=== PATIENT | male | born 2000 | race Caucasian/White ===

== ENCOUNTER 2018-06-12 05:12 | Day surgery (SDC) | payer OTHER, BC ==
--- NOTE | 2018-06-12 09:33 | HP ---
Satellite H - Chief Complaint Chief Complaint: right hand fx - Past Medical History Allergies/Adverse Reactions: Allergies Allergy/AdvReac Type Severity Reaction Status Date / Time No Known Allergies Allergy Verified 06/10/18 13:39 - Current Medications Current Medications: Home Medications Medication Instructions Recorded Cetirizine HCl [Zyrtec -] 10 mg PO DAILY PRN 06/10/18 Fluticasone Prop 0.05% Nasal 1 - 2 spray NS BID PRN 06/10/18 [Flonase -] Hydrocodone/Acetaminophen [[place] 1 each PO Q6H PRN #20 tablet MDD 4 06/12/18 5-325 Tablet] Satellite Physical Exam - Physical Examination General Appearance: Well Nourished, Well Developed, Alert & Oriented x3 ENT: Clear Lung: Normal air movement Heart: Regular rate & rhythm Extremities: Other (right hand- + swelling, + ttp, decr rom, nvi xrays show displaced 4th and 5th metacarpal fx) Neurological: Intact, Alert, Oriented Satellite Impression/Plan - Impression/Plan Impression: right displaced 4th and 5th metacarpal fx Operative Procedure: right 4th and 5th metacarpal orif Date to be Performed: 06/12/18
[2018-06-12] MEDS ORDERED: MIDAZOLAM HCL 2 MG/2 ML SINGLE DOSE VIAL ONE ×2 (11:41→12:03)
[2018-06-12] MEDS ORDERED: DEXAMETHASONE SOD PHOSPHATE 4 MG/1 ML VIAL ONE ×2 (11:42→13:32)
[2018-06-12] MEDS ORDERED: ceFAZolin SODIUM 1 GM VIAL ONE (11:42)
[2018-06-12] MEDS ORDERED: SODIUM CHLORIDE 0.9% P/F 10 ML VIAL IJ ONE (11:42)
[2018-06-12] MEDS ORDERED: ROPIVACAINE HCL 0.5% 30ML VIAL ONE (12:02)
[2018-06-12] MEDS ORDERED: DEXAMETHASONE SOD PHOSPHATE/PF 10 MG/ML SDV ONE (12:02)
[2018-06-12] MEDS ORDERED: ceFAZolin SODIUM 1 GM VIAL IVPB ONE (12:33)
[2018-06-12] MEDS ORDERED: PROPOFOL 20 ML ONE ×2 (12:47→13:21)
[2018-06-12] MEDS ORDERED: KETOROLAC TROMETHAMINE 30 MG/1 ML VIAL ONE (13:34)
--- NOTE | 2018-06-12 13:59 | OP ---
Operative Note - Note: Operative Date: 06/12/18 Pre-Operative Diagnosis: right hand 4th and 5th metacarpal fractures Operation: ORIF right 4th and 5th metacarpals Implants: k wires x 6 Surgeon: Juan Carlos Huang Anesthesiologist/ASSEMBLER LEATHER GOODS: Carlos Gold Estimated Blood Loss (mls): 0 Blood Volume Replaced (mls): 0 Fluid Volume Replaced (mls): 700 Operative Report Dictated: Yes
[2018-06-12 14:36] VITALS: BMI 22.3
[2018-06-12 17:15] VITALS: TEMP 97.8
[2018-06-12 17:25] VITALS: BP 120/68; PULSE 68
--- NOTE | 2018-06-13 10:33 | OP ---
DATE OF OPERATION: 06/12/2018 PREOPERATIVE DIAGNOSIS: Right hand fourth and fifth metacarpal fractures. POSTOPERATIVE DIAGNOSIS: Right hand fourth and fifth metacarpal fractures. PROCEDURE: Open reduction internal fixation right hand fourth and fifth metacarpals. SURGEON: [place] Howadr M.D. ASSISTANTS: None. ANESTHESIOLOGIST: Kevon Barone CRNA with Dr. Jaycob Fernandez overseeing him. ANESTHESIA: Right axillary block with LMA anesthesia. DRAINS: None. COMPLICATIONS: None. SPECIMENS: None. BLOOD LOSS: None. BLOOD GIVEN: None. FLUID REPLACEMENT: PlasmaLyte 500 mL. This patient is a 18-year-old right hand dominant male with the preoperative diagnosis of right hand fourth and fifth metacarpal fractures. After understanding the potential risks, complications, alternatives and benefits of surgery, versus non-surgical treatment, the patient elected to undergo this procedure. He and the family understand that he may have hardware. If it is K-wires it needs to be removed in the office or the operating room. He may have some deficit of function of the right hand including decreased strength, decreased flexibility, decreased fine motor skills, et cetera. There is risk of infection while the hardware is in. He may need physical therapy. PROCEDURE: The patient was brought to the operating room, peripheral IV placed, IV sedation given. Right axillary block was performed. Tourniquet was applied to the right upper arm. The right upper extremity was prepped and draped in the usual sterile fashion and elevated, exsanguinated with an Esmarch bandage, tourniquet inflated to 250 mmHg. Closed reduction was performed. X-rays were taken. The fourth and fifth metacarpal fractures were still 100% displaced, overlapped and shortened; therefore the decision was made to open. A longitudinal incision was made over the dorsal aspect of the fourth metacarpal done with the 15 scalpel blade. Subcutaneous hemostasis was achieved with the bipolar cautery. Careful dissection done down to the dorsal aspect of the fourth metacarpal with small Madhu Tenotomy Scissors. Small self-retaining retractors were placed into the wound. Great care was taken to preserve all crossing neurovascular and tendon structures. The area was copiously irrigated and washed out. Muscle debris removed from the fracture site. Closed reduction was performed under direct visualization, looked much better. X-rays were taken, looked good. Therefore, in a retrograde fashion, three .045 K-wires were placed across the fracture site holding it in place getting good cortical purchase proximally. Multiple x-rays were taken. Overall things looked quite good; therefore, the pins were cut, bent, pin caps applied. Next, the same was done to the fifth metacarpal. Here, however, there was a much larger piece of muscle which was in between the 2 fracture fragments preventing closed reduction. This was removed and then a reduction could be performed. That being said, the fifth was much more unstable than the fourth. The fifth therefore could not be held in place and I chose to do antegrade and retrograde technique. I drilled the .045 K-wires in a proximal to distal fashion, then reduced it, then put them back in a retrograde fashion. Three K-wires were used here as well. Overall looked quite good. Reduction was excellent. Bony reapproximation was excellent. Final x-rays were taken in AP, lateral, multiple oblique planes. These K-wires were also bent, cut and pin caps applied. The area was washed, dried. A 4-0 undyed Vicryl used to close the deep dermal layer. Final skin reapproximation was done with a running subcuticular 4-0 Biosyn stitch. Xeroform was used at the base of the K-wires. The area was covered with sterile 4x4 gauze, Webril and a 5-inch Ortho-Glass volar splint was applied in a volar and ulnar gutter fashion, wrapped with Marichuy and Coban. Tourniquet was taken down after total tourniquet time of 57 minutes. There were no complications during the case. The patient tolerated the procedure well and was brought to the Ambulatory recovery room in stable condition. CHICO HOWARD M.D. [id number]
== END 2018-06-12 17:15 | disposition home or self-care (01) ==
LOC: JASU-SURG 05:12
PROVIDERS: ATTEND Orthopaedic Surgery
PROC: 0PSP04Z Reposition Right Metacarpal with Internal Fixation Device, Open Approach (ICD-10-PCS; 2018-06-12)
PROC: 0PSP04Z Reposition Right Metacarpal with Internal Fixation Device, Open Approach (ICD-10-PCS; principal; 2018-06-12 12:00)
DX: S62.394A Other fracture of fourth metacarpal bone, right hand, initial encounter for closed fracture (principal); S62.396A Other fracture of fifth metacarpal bone, right hand, initial encounter for closed fracture; X58.XXXA Exposure to other specified factors, initial encounter; Y93.9 Activity, unspecified; Y92.9 Unspecified place or not applicable; Y99.9 Unspecified external cause status
CPT/HCPCS: 76000-TC-FY; 94760